=== PATIENT | female | born 1960 | race Caucasian/White ===

== ENCOUNTER → 2021-11-18 | Outpatient (CLI) | payer OTHER ==
--- NOTE | 2021-11-18 15:01 | US ---
EXAMINATION TYPE: US kidneys/renal and bladder DATE OF EXAM: 11/18/2021 COMPARISON: CT 10/03/2012 CLINICAL HISTORY: N18.31 CKD. EXAM MEASUREMENTS: Right Kidney: 9.7 x 3.6 x 4.5 cm Left Kidney: 10.3 x 5.4 x 5.3 cm Right Kidney: 1: Anechoic mass superior pole 0.8 x 0.6 x 0.5cm 2: Anechoic mass mid pole 0.7 x 0.8 x 0.6cm 3: Echogenic tissue vs. mass inferior pole leading from outer cortex to hilum with vascular flow. Ricci spect malformation. 0.9 x 0.6 x 1.6cm Left Kidney: 1: Anechoic exophytic mass superior pole, correlating with prior CT imaging, 1.9 x 2.0 x 1.7cm . 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 Bladder: wnl Bilateral Jets seen: Right jet not visualized. Left jet visualized. There is no evidence for hydronephrosis at this point in time. No nephrolithiasis is seen. The urin an bladder is anechoic. IMPRESSION: 1. Findings suggestive for bilateral renal cysts.
== END | disposition home or self-care (01) ==
LOC: RADUSWWP 12:50
PROVIDERS: ATTEND Family Medicine
DX: N18.31 Chronic kidney disease, stage 3a (principal)
CPT/HCPCS: 76770

== ENCOUNTER → 2023-01-01 | Outpatient (CLI) | payer OTHER ==
--- NOTE | 2023-01-01 08:50 | US ---
EXAMINATION TYPE: US kidneys/renal and bladder DATE OF EXAM: 01/01/2023 COMPARISON: NONE CLINICAL INDICATION: Female, 62 years old with history of N18.32 CHRONIC KID, N28.1 CYST OF KIDNEY, A CQUIRED; ckd EXAM MEASUREMENTS: Right Kidney: 9.1 x 3.2 x 4.2 cm Left Kidney: 10 x 4.7 x 4.4 cm Right Kidney: echogenic area seen lower pole .7 x .5 x .8 m. Anechoic area mid pole 1.0 x .8 x .6 cm. Left Kidney: Anechoic area upper pole 2.6 x 1.9 x 2.5 cm. Bladder: Anechoic Bilateral Jets seen: Left only There is no evidence for hydronephrosis at this point in time. The urinary bladder is anechoic. Jason ateral ureteral jets are seen. IMPRESSION: 1. Right-sided nonobstructing nephrolithiasis. 2. Bilateral renal cysts.
== END | disposition home or self-care (01) ==
LOC: RADUSWWP 08:16
PROVIDERS: ATTEND Family Medicine
DX: N18.32 Chronic kidney disease, stage 3b (principal); N28.1 Cyst of kidney, acquired; N20.0 Calculus of kidney
CPT/HCPCS: 76770

== ENCOUNTER → 2024-01-25 | Day surgery (SDC) | payer OTHER ==
[2024-01-23 11:52] VITALS: BMI 25.0
[~2024-01-25] MED LIST: PROPOFOL 10 MG/ML 20 ML VIAL IV ONE
[2024-01-25 12:01] VITALS: TEMP 97.4
[2024-01-25] MEDS: IV FLUID CONTINUATION 1,000 ML IV ONE ×2 (12:07→13:15)
[2024-01-25] MEDS: LACTATED RINGERS 1,000 ML IV SCH (12:16)
[2024-01-25 12:20] LABS: Glucose,Whole Blood 137 mg/dL (70-110)
--- NOTE | 2024-01-25 13:37 | P.PCN ---
Date of Procedure: 01/25/24 Procedure(s) Performed: BRIEF HISTORY: Patient is a 63-year-old pleasant white female scheduled for an elective colonoscopy as a part of evaluation of Hemoccult positive stool. PROCEDURE PERFORMED: Colonoscopy snare polypectomy. PREOPERATIVE DIAGNOSIS: Hemoccult positive stool. IV sedation per Anesthesia. PROCEDURE: After informed consent was obtained, the patient, was brought into the endoscopy unit. IV sedation was administered by Anesthesia under continuous monitoring. Digital rectal examination was normal. Initially the Olympus CF-160 flexible video colonoscope was then inserted in the rectum, gradually advanced into the cecum without any difficulty. Careful examination was performed as the scope was gradually being withdrawn. Ileocecal valve and the appendiceal orifice were visualized and appeared normal. Prep was excellent. Mucosa of the cecum, ascending colon, normal. The transverse colon there was a 5 mm polyp removed by snare polypectomy. Rest of the transverse colon, descending colon, sigmoid colon normal. In the rectosigmoid colon there was a 1 cm thick pedunculated p olyp removed by snare polypectomy and this was located at 22 cm from the anal verge. It was in the rectum there was a 5 mm polyp that was removed by snare polypectomy. Retroflexion was performed in the rectum and no lesions were seen. The patient tolerated the procedure well. IMPRESSION: 5 mm transverse colon polyp status post polypectomy 1 cm thick pedunculated rectosigmoid polyp status post snare polypectomy 5 mm distal rectal polyp status post snare polypectomy RECOMMENDATIONS: Findings of this examination were discussed with the patient as well as her family.. She was advised to follow-up with the biopsy results. If the biopsy reveals adenoma she can have repeat colonoscopy in 3 years. 63
[2024-01-25 14:00] VITALS: BP 133/64; PULSE 93; RESP 14
== END ==
LOC: ORWHC2ENDO 10:32
PROVIDERS: ATTEND Internal Medicine Gastroenterology
DX: D12.3 Benign neoplasm of transverse colon (principal); D12.8 Benign neoplasm of rectum; K58.9 Irritable bowel syndrome, unspecified; K92.2 Gastrointestinal hemorrhage, unspecified; I10 Essential (primary) hypertension; E78.5 Hyperlipidemia, unspecified; F17.210 Nicotine dependence, cigarettes, uncomplicated; F12.90 Cannabis use, unspecified, uncomplicated; E11.9 Type 2 diabetes mellitus without complications; Z88.2 Allergy status to sulfonamides; Z79.02 Long term (current) use of antithrombotics/antiplatelets; Z79.84 Long term (current) use of oral hypoglycemic drugs; Z79.899 Other long term (current) drug therapy
CPT/HCPCS: 88305; 45385; J2704

== ENCOUNTER 2024-07-19 21:14 | Inpatient (IN) | payer OTHER, MEDICARE ==
--- NOTE | 2024-07-19 21:41 | ED ---
General Adult HPI - General Chief complaint: Nausea/Vomiting/Diarrhea Stated complaint: nause and vomitting Time Seen by Provider: 07/19/24 21:17 Source: patient Mode of arrival: EMS Limitations: no limitations - History of Present Illness Initial comments: Dictation was produced using [employer] dictation software. please excuse any grammatical, word or spelling errors. Chief Complaint: 63-year-old female with allergic reaction History of Present Illness: Patient is a 63-year-old female complains of allergic reaction to Levaquin that was prescribed to her by primary care doctor for her UTI. Patient states that after taking her first pill which she was prescribed today she started to have itching redness warmth to her skin. She took a Benadryl with improvement of her symptoms. The ROS documented in this emergency department record has been reviewed and confirmed by me. Those systems with pertinent positive or negative responses have been documented in the HPI. All other systems are other negative and/or noncontributory. - Related Data Home Medications Medication Instructions Recorded Confirmed Dicyclomine [Bentyl] 10 mg PO DAILY 01/23/24 01/25/24 Empagliflozin [Jardiance] 25 mg PO DAILY 01/23/24 01/25/24 Glimepiride [Amaryl] 2 mg PO AC-[id number] 01/23/24 01/25/24 Pioglitazone [Actos] 30 mg PO DAILY 01/23/24 01/25/24 Rosuvastatin [Crestor] 10 mg PO PC-SUPPER 01/23/24 01/25/24 Semaglutide [Ozempic] 0.25 mg SQ FR 01/23/24 01/25/24 lisinopriL [Zestril] 5 mg PO DAILY 01/23/24 01/25/24 Allergies Allergy/AdvReac Type Severity Reaction Status Date / Time levofloxacin Allergy Itching Verified 07/19/24 21:23 Sulfa (Sulfonamide Allergy Itching Verified 07/19/24 21:23 Antibiotics) Review of Systems ROS Statement: Those systems with pertinent positive or pertinent negative responses have been documented in the HPI. ROS Other: All systems not noted in ROS Statement are negative. Past Medical History Past Medical History: Diabetes Mellitus, Hyperlipidemia, Hypertension Additional Past Medical History / Comment(s): IBS-UNDER CONTROL AT THIS TIME History of Any Multi-Drug Resistant Organisms: None Reported Past Surgical History: Bladder Surgery, Hysterectomy, Tonsillectomy Additional Past Surgical History / Comment(s): BLADDER SURGERIES CHILD. COLONOSCOPY Past Anesthesia/Blood Transfusion Reactions: No Reported Reaction Past Psychological History: No Psychological Hx Reported Smoking Status: Current every day smoker Past Alcohol Use History: None Reported Past Drug Use History: Marijuana - Past Family History Mother Family Medical History: Deep Vein Thrombosis (DVT) Father Family Medical History: Cancer General Exam - General Exam Comments Initial Comments: PHYSICAL EXAM: General Impression: Alert and oriented x3, not in acute distress HEENT: Normocephalic atraumatic, extra-ocular movements intact, pupils equal and reactive to light bilaterally, mucous membranes moist. Cardiovascular: Heart regular rate and rhythm Chest: Able to complete full sentences, no retractions, no tachypnea Abdomen: abdomen soft, non-tender, non-distended, no organomegaly Musculoskeletal: Pulses present and equal in all extremities, no peripheral edema Motor: no focal deficits noted Neurological: CN II-XII grossly intact, no focal motor or sensory deficits noted Skin: Slightly erythematous skin diffusely Psych: Normal affect and mood Limitations: no limitations Course Vital Signs 07/19/24 07/19/24 21:20 22:59 Temperature 98.8 F 98.6 F Pulse Rate 117 H 101 H Respiratory 18 18 Rate Blood Pressure 122/80 128/79 O2 Sat by Pulse 96 95 Oximetry Medical Decision Making - Medical Decision Making Was pt. sent in by a medical professional or institution (, PA, MANUFACTURING TECH, urgent care, hospital, or halfway...) When possible be specific @ -No Did you speak to anyone other than the patient for history (EMS, parent, family, police, friend...)? What history was obtained from this source @ -No Did you review nursing and triage notes (agree or disagree)? Why? @ -I reviewed and agree with nursing and triage notes Were old charts reviewed (outside hosp., previous admission, EMS record, old EKG, old radiological studies, urgent care reports/EKG's, halfway records)? Report findings @ -No old charts were reviewed Differential Diagnosis (chest pain, altered mental status, abdominal pain women, abdominal pain men, vaginal bleeding, musculoskeletal, weakness, fever, dyspnea , syncope, headache, dizziness, GI bleed, back pain, seizure, CVA, palpatations, mental health)? @ -Differential Weakness: Hypoglycemia, shock, sepsis, hyponatremia, anemia, infection, OR, ETOH, adverse medicine reaction, overdose, stroke, this is not meant to be an all-inclusive list. EKG interpreted by me (3pts min.). @ -None done X-rays interpreted by me (1pt min.). @ -None done CT interpreted by me (1pt min.). @ -None done U/S interpreted by me (1pt. min.). @ -None done What testing was considered but not performed or refused? (CT, X-rays, U/S, labs)? Why? @ -None What meds were considered but not given or refused? Why? @ -None Was smoking cessation discussed for >3mins.? @ -No Were there social determinants of health that impacted care today? How? (Homelessness, low income, unemployed, alcoholism, drug addiction, transportation, low edu. Level, literacy, decrease access to med. care, long term, rehab)? @ -No Was there de-escalation of care discussed even if they declined (Discuss DNR or withdrawal of care, Hospice)? DNR status @ -No What co-morbidities impacted this encounter? (DM, HTN, Smoking, COPD, CAD, Cancer, CVA, ARF, Chemo, Hep., AIDS, mental health diagnosis, sleep apnea, morbid obesity)? @ -Diabetes Was patient admitted / discharged? Hospital course, mention meds given and route, prescriptions, significant lab abnormalities, going to OR and other pertinent info. @ -63-year-old female presents with allergic reaction to Levaquin use. Vital signs show slight tachycardia. Patient tremulous at the bedside however not in significant acute distress. Laboratory evaluation shows leukocytosis 25.62. Anion gap of 20 with a bicarb of 14. Acetone positive. Patient is prescribed Jardiance. Concern of Jardiance induced DKA. Patient started on DKA order set will be admitted. Case discussed with hospitalist for admission. Did you discuss the management of the patient with other professionals (professionals i.e. , PA, MANUFACTURING TECH, lab, RT, psych nurse, oncology social worker, copper plater, teacher, antisubmarine weapons officer, ed case manager)? Give summary @ -See above Was critical care preformed (if so, how long)? @ -Yes, 33 minutes Undiagnosed new problem with uncertain prognosis? @ -No Drug Therapy requiring intensive monitoring for toxicity (Heparin, Nitro, Insulin, Cardizem)? @ -No Were any procedures done? @ -No Diagnosis/symptom? Acute, or Chronic, or Acute on Chronic? Uncomplicated (without systemic symptoms) or Complicated (systemic symptoms)? @ -DKA Side effects of treatment? @ -No Exacerbation, Progression, or Severe Exacerbation? @ -No Poses a threat to life or bodily function? How? (Chest pain, USA, OR, pneumonia, PE, COPD, DKA, ARF, appy, cholecystitis, CVA, Diverticulitis, Homicidal, Suicidal, threat to staff... and all critical care pts) @ -yes - Lab Data Result diagrams: 07/19/24 21:34 07/19/24 21:34 Lab Results 07/19/24 07/19/24 07/19/24 Range/Units 21:34 21:34 21:35 WBC 25.62 H (4.50-10.00) 10*3/uL RBC 5.29 H (4.10-5.20) 10*6/uL Hgb 16.4 H (12.0-15.0) g/dL Hct 49.1 H (37.2-46.3) % MCV 92.8 (80.0-97.0) fL MCH 31.0 (27.0-32.0) pg MCHC 33.4 (32.0-37.0) g/dL Plt Count 265 (140-440) 10*3/uL MPV 10.5 (9.5-12.2) fL Immature Gran % (Auto) 0.8 % Neutrophils % 77.2 % Lymphocytes % 16.7 % Monocytes % 4.8 % Eosinophils % 0.1 % Basophils % 0.4 % Immature Gran # 0.21 H (0.00-0.04) 10*3/uL Neutrophils # 19.78 H (1.80-7.70) 10*3/uL Lymphocytes # 4.29 (0.90-5.00) 10*3/uL Monocytes # 1.22 H (0.20-1.00) 10*3/uL Eosinophils # 0.03 L (0.04-0.35) 10*3/uL Basophils # 0.09 (0.00-0.10) 10*3/uL Sodium 139 (137-145) mmol/L Potassium 4.3 (3.5-5.1) mmol/L Chloride 105 (98-107) mmol/L Carbon Dioxide 14 L (22-30) mmol/L Anion Gap 20 mmol/L BUN 26 H (7-17) mg/dL Creatinine 1.50 H (0.52-1.04) mg/dL Est GFR (CKD-EPI)AfAm 42 (>60 ml/min/1.73 sqM) Est GFR (CKD-EPI)NonAf 37 (>60 ml/min/1.73 sqM) Glucose 299 H (74-99) mg/dL POC Glucose (mg/dL) (70-110) mg/dL POC Glu Technology Risk Intern ID Calcium 9.9 (8.4-10.2) mg/dL Urine Color Urine Appearance (Clear) Urine pH (5.0-8.0) Ur Specific Crockett (1.001-1.035) Urine Protein (Negative) Urine Glucose (UA) (Negative) Urine Ketones (Negative) Urine Blood (Negative) Urine Nitrite (Negative) Urine Bilirubin (Negative) Urine Urobilinogen (<2.0) mg/dL Ur Leukocyte Esterase (Negative) Urine RBC (0-5) /hpf Urine WBC (0-5) /hpf Urine WBC Clumps (None) /hpf Ur Squamous Epith Cells (0-4) /hpf Hyaline Casts (0-2) /lpf Urine Mucus (None) /hpf Acetone, Qual Positive (Negative) 07/19/24 07/19/24 Range/Units 22:55 23:29 WBC (4.50-10.00) 10*3/uL RBC (4.10-5.20) 10*6/uL Hgb (12.0-15.0) g/dL Hct (37.2-46.3) % MCV (80.0-97.0) fL MCH (27.0-32.0) pg MCHC (32.0-37.0) g/dL Plt Count (140-440) 10*3/uL MPV (9.5-12.2) fL Immature Gran % (Auto) % Neutrophils % % Lymphocytes % % Monocytes % % Eosinophils % % Basophils % % Immature Gran # (0.00-0.04) 10*3/uL Neutrophils # (1.80-7.70) 10*3/uL Lymphocytes # (0.90-5.00) 10*3/uL Monocytes # (0.20-1.00) 10*3/uL Eosinophils # (0.04-0.35) 10*3/uL Basophils # (0.00-0.10) 10*3/uL Sodium (137-145) mmol/L Potassium (3.5-5.1) mmol/L Chloride (98-107) mmol/L Carbon Dioxide (22-30) mmol/L Anion Gap mmol/L BUN (7-17) mg/dL Creatinine (0.52-1.04) mg/dL Est GFR (CKD-EPI)AfAm (>60 ml/min/1.73 sqM) Est GFR (CKD-EPI)NonAf (>60 ml/min/1.73 sqM) Glucose (74-99) mg/dL POC Glucose (mg/dL) 195 H (70-110) mg/dL POC Glu Technology Risk Intern ID Faustino Canchola Calcium (8.4-10.2) mg/dL Urine Color Light Yellow Urine Appearance Clear (Clear) Urine pH 5.0 (5.0-8.0) Ur Specific [place]ckett 1.019 (1.001-1.035) Urine Protein Negative (Negative) Urine Glucose (UA) 4+ H (Negative) Urine Ketones 1+ H (Negative) Urine Blood Negative (Negative) Urine Nitrite Negative (Negative) Urine Bilirubin Negative (Negative) Urine Urobilinogen <2.0 (<2.0) mg/dL Ur Leukocyte Esterase Trace H (Negative) Urine RBC 1 (0-5) /hpf Urine WBC 1 (0-5) /hpf Urine WBC Clumps Rare H (None) /hpf Ur Squamous Epith Cells 1 (0-4) /hpf Hyaline Casts 6 H (0-2) /lpf Urine Mucus Rare H (None) /hpf Acetone, Qual (Negative) Disposition Clinical Impression: DKA (diabetic ketoacidosis) Disposition: ADMITTED IP TO THIS [facility] Condition: Serious Referrals: Ilan Potts MD [Primary Care Provider] - 1-2 days Decision Time: 23:44
[2024-07-19 21:44] LABS: Basophils # (A) 0.09 10*3/uL (0.00-0.10); Basophils % (A) 0.4 %; Eosinophils # (A) 0.03 10*3/uL (0.04-0.35); Eosinophils % (A) 0.1 %; HCT 49.1 % (37.2-46.3); HGB 16.4 g/dL (12.0-15.0); Lymphocytes # (A) 4.29 10*3/uL (0.90-5.00); Lymphocytes % (A) 16.7 %; MCHC 33.4 g/dL (32.0-37.0); MCV 92.8 fL (80.0-97.0); Mean Platelet Volume 10.5 fL (9.5-12.2); Monocytes # (A) 1.22 10*3/uL (0.20-1.00); Monocytes % (A) 4.8 %; Neutrophils # (A) 19.78 10*3/uL (1.80-7.70); Neutrophils % (A) 77.2 %; Platelet Count 265 10*3/uL (140-440); RBC 5.29 10*6/uL (4.10-5.20); RDW 14.1 % (11.5-14.5); WBC 25.62 10*3/uL (4.50-10.00)
[2024-07-19 22:02] LABS: African American GFR (CKD) 42 (>60 ml/min/1.73 sqM); Anion Gap 20 mmol/L; Blood Urea Nitrogen 26 mg/dL (7-17); Calcium 9.9 mg/dL (8.4-10.2); Carbon Dioxide 14 mmol/L (22-30); Chloride 105 mmol/L (98-107); Glucose 299 mg/dL (74-99); Non-African American GFR(CKD) 37 (>60 ml/min/1.73 sqM); Potassium 4.3 mmol/L (3.5-5.1); Sodium 139 mmol/L (137-145)
[2024-07-19] MEDS: SODIUM CHLORIDE 0.9% 1,000 ML IV STA (22:57)
[2024-07-19 23:24] LABS: Appearance,Urine Clear (Clear); Bilirubin,Urine Negative (Negative); Blood,Urine Negative (Negative); Color,Urine Light Yellow; Glucose,Urine (UA) 4+ (Negative); Hyaline Casts,Urine 6 /lpf (0-2); Ketones,Urine 1+ (Negative); Leukocyte Esterase,Urine Trace (Negative); Mucus,Urine Rare /hpf; Nitrite,Urine Negative (Negative); Protein,Urine Negative (Negative); RBC,Urine 1 /hpf (0-5); Specific Gravity,Urine 1.019 (1.001-1.035); Squamous Epithelial Cell,Urine 1 /hpf (0-4); Urobilinogen,Urine <2.0 mg/dL (<2.0); WBC,Urine 1 /hpf (0-5)
[2024-07-19 23:31] LABS: Glucose,Whole Blood 195 mg/dL (70-110)
[2024-07-19] MEDS ORDERED: Potassium Replacement Protocol 1 EACH MISC MISCELLANE PRN (23:34)
[2024-07-19] MEDS ORDERED: DEXTROSE 50% SYRINGE 50 ML IVP PRN ×2 (23:34)
[2024-07-19] MEDS ORDERED: Magnesium Replacement Protocol 1 EACH MISC MISCELLANE PRN (23:34)
[2024-07-19] MEDS ORDERED: NALOXONE 0.4 MG/ML 1 ML VIAL IV PRN (23:42)
[2024-07-19] MEDS: SODIUM CHLORIDE 0.9% 1,000 ML IV SCH (23:43)
[2024-07-19] MEDS: D5-0.45% NACL WITH KCL 20MEQ/L 1,000 ML IV SCH (23:56)
[2024-07-19] MEDS: INSULIN REGULAR 100 UNIT in SODIUM CHLORIDE 0.9% 100 ML IV SCH (23:59)
[2024-07-20] MEDS: INSULIN REGULAR BOLUS (FROM DRIP BAG) IV ONE
[2024-07-20 00:34] LABS: Glucose,Whole Blood 140 mg/dL (70-110)
[2024-07-20 01:35] LABS: Glucose,Whole Blood 111 mg/dL (70-110)
[2024-07-20 02:02] LABS: African American GFR (CKD) 47 (>60 ml/min/1.73 sqM); Anion Gap 13 mmol/L; Blood Urea Nitrogen 27 mg/dL (7-17); Carbon Dioxide 19 mmol/L (22-30); Chloride 108 mmol/L (98-107); Glucose 99 mg/dL (74-99); Non-African American GFR(CKD) 40 (>60 ml/min/1.73 sqM); Phosphorus 3.5 mg/dL (2.5-4.5); Potassium 4.3 mmol/L (3.5-5.1); Sodium 140 mmol/L (137-145)
[2024-07-20 02:41] LABS: Glucose,Whole Blood 84 mg/dL (70-110)
[2024-07-20 03:13] LABS: Glucose,Whole Blood 72 mg/dL (70-110)
[2024-07-20 03:40] LABS: Glucose,Whole Blood 64 mg/dL (70-110)
[2024-07-20 04:02] LABS: Glucose,Whole Blood 124 mg/dL (70-110)
[2024-07-20 04:31] LABS: Glucose,Whole Blood 121 mg/dL (70-110)
[2024-07-20 05:33] LABS: Glucose,Whole Blood 98 mg/dL (70-110)
[2024-07-20 05:57] LABS: African American GFR (CKD) 48 (>60 ml/min/1.73 sqM); Anion Gap 11 mmol/L; Blood Urea Nitrogen 25 mg/dL (7-17); Carbon Dioxide 20 mmol/L (22-30); Chloride 107 mmol/L (98-107); Glucose 87 mg/dL (74-99); Non-African American GFR(CKD) 41 (>60 ml/min/1.73 sqM); Phosphorus 3.7 mg/dL (2.5-4.5); Potassium 4.8 mmol/L (3.5-5.1); Sodium 138 mmol/L (137-145)
[2024-07-20 06:06] LABS: Glucose,Whole Blood 100 mg/dL (70-110)
[2024-07-20 06:43] LABS: Glucose,Whole Blood 83 mg/dL (70-110)
[2024-07-20] MEDS: INSULIN LISPRO (HumaLOG) 100 UNIT/ML 10 mL VL SQ SCH (06:43)
[2024-07-20 07:48] LABS: Glucose,Whole Blood 89 mg/dL (70-110)
[2024-07-20 11:54] LABS: Glucose,Whole Blood 92 mg/dL (70-110)
[2024-07-20 15:28] LABS: African American GFR (CKD) 48 (>60 ml/min/1.73 sqM); Anion Gap 9 mmol/L; Blood Urea Nitrogen 20 mg/dL (7-17); Carbon Dioxide 23 mmol/L (22-30); Chloride 106 mmol/L (98-107); Non-African American GFR(CKD) 42 (>60 ml/min/1.73 sqM); Phosphorus 3.2 mg/dL (2.5-4.5); Potassium 4.5 mmol/L (3.5-5.1); Sodium 138 mmol/L (137-145)
[2024-07-20 16:24] LABS: Glucose,Whole Blood 112 mg/dL (70-110)
[2024-07-20] MEDS: lisinopriL 5 MG TAB PO SCH (17:57)
[2024-07-20 20:51] LABS: Glucose,Whole Blood 111 mg/dL (70-110)
--- NOTE | 2024-07-20 21:44 | HP ---
HISTORY AND PHYSICAL CHIEF COMPLAINT: Generalized rash, likely secondary to quinolone. HISTORY OF PRESENT ILLNESS: This lady was in the office and received a prescription for Levaquin. She then suddenly broke out in generalized erythematous pruritic dermatitis with nausea, vomiting, and shortness of breath. She came to the emergency room. In the emergency room, her blood sugar was 195. Her white count was 25,620 with a hemoglobin of 16.4 and hematocrit of 49.1. Blood sugar was normal. BUN was 25 with a creatinine 1.36 and a GFR of only 41. REVIEW OF SYSTEMS: Otherwise unremarkable. She has had no fever, chills, hematemesis, melena, hematochezia, urinary complaints, etc. Past medical history, family history and personal and social histories are all otherwise unremarkable. PHYSICAL EXAMINATION: VITAL SIGNS: Normal. HEAD, EARS, EYES, NOSE, MOUTH AND THROAT: Normal. Face is flushed. CHEST: Clear. CARDIAC: Demonstrates sinus rhythm. ABDOMEN: Soft, nontender. EXTREMITIES: Normal appearance. She has a generalized erythematous rash with some excoriations and ecchymoses. IMPRESSION: 1. Generalized reaction to quinolone with nausea and vomiting and rash. 2. Elevated blood sugar. 3. Renal failure. 4. Leukocytosis. PLAN: 1. Bed rest. 2. IV fluids. 3. Follow blood work. 4. Manage diabetes. 5. Monitor renal function. MMODL / IJN: [id number] /
--- NOTE | 2024-07-20 21:50 | PN ---
PROGRESS NOTE CHIEF COMPLAINT: Systemic reaction to quinolone. HISTORY OF PRESENT ILLNESS: This lady is doing a little bit better. Rash is fading. She has not had any chest pain, or any further vomiting. IMPRESSION: 1. Drug reaction. 2. Chronic kidney disease. 3. Leukocytosis. PLAN: Continue with monitoring of her vital signs along with IV fluids and follow her renal function and her white count. MMODL / IJN: [id number] /
[2024-07-21 05:54] VITALS: RESP 18
[2024-07-21 06:13] LABS: Glucose,Whole Blood 116 mg/dL (70-110)
[2024-07-21 07:25] VITALS: BP 158/75; PULSE 74; TEMP 98.5
[2024-07-21 11:32] VITALS: BMI 26.8
--- NOTE | 2024-07-21 20:18 | DS ---
DISCHARGE SUMMARY CHIEF COMPLAINT: Drug reaction with shortness of breath, nausea and vomiting. HISTORY OF PRESENT ILLNESS AND PHYSICAL EXAMINATION: Details of this lady's History and Physical can be found in the initial workup. LABORATORY STUDIES: While she was in the hospital, she had laboratory studies, details of which could be found in the laboratory section of her chart. COURSE IN THE HOSPITAL: After admission, she was placed on bedrest, started intravenous fluids and started on Benadryl. Arrest slowly improved. Abdominal pain subsided. Shortness of breath disappeared. She was doing well by the morning and the night and it was felt that she could go home on her usual activity, diet, medication. She will be seen in the office in several days. FINAL DIAGNOSES: 1. Allergic drug reaction to quinolone. 2. Hypertension. 3. Diabetes. OPERATIONS: None. CONSULTATIONS: None. She is improved. MMDESI / BILL: [id number] /
== END 2024-07-21 12:58 | disposition home or self-care (01) | DRG 606 ==
LOC: EC 21:14 → 3SCARD 23:42
PROVIDERS: ADMIT Family Medicine; ATTEND Family Medicine
DX: L27.0 Generalized skin eruption due to drugs and medicaments taken internally (principal); E11.10 Type 2 diabetes mellitus with ketoacidosis without coma; E11.22 Type 2 diabetes mellitus with diabetic chronic kidney disease; N18.9 Chronic kidney disease, unspecified; I12.9 Hypertensive chronic kidney disease with stage 1 through stage 4 chronic kidney disease, or unspecified chronic kidney disease; N39.0 Urinary tract infection, site not specified; R06.02 Shortness of breath; E78.5 Hyperlipidemia, unspecified; T37.8X5A Adverse effect of other specified systemic anti-infectives and antiparasitics, initial encounter; F17.200 Nicotine dependence, unspecified, uncomplicated; R11.2 Nausea with vomiting, unspecified; R19.7 Diarrhea, unspecified; Z79.84 Long term (current) use of oral hypoglycemic drugs; Z79.85 Long-term (current) use of injectable non-insulin antidiabetic drugs; Z79.899 Other long term (current) drug therapy; Y92.009 Unspecified place in unspecified non-institutional (private) residence as the place of occurrence of the external cause; Z88.2 Allergy status to sulfonamides
CPT/HCPCS: 36415; 80048; 80051; 81001; 82009; 82565; 82947; 84100; 84520; 85025; 96361; 96365; 96366; 99291